=== PATIENT | female | born 1970 | race Caucasian/White ===

== ENCOUNTER 2018-06-19 02:47 | Inpatient (IN) ==
[2018-06-19] MEDS ORDERED: Bisacodyl 10 MG Supp RECTAL PRN (08:05)
[2018-06-19] MEDS ORDERED: Aluminum/Magnesium/Simethacone Susp 30 ML UDC PO PRN ×2 (08:05→12:21)
[2018-06-19] MEDS ORDERED: Senna/Docusate Sodium 8.6/50 MG Tablet PO SCH (09:00)
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
== END 2018-06-19 13:55 | disposition home or self-care (01) ==
LOC: H260 05:00
PROVIDERS: ADMIT Psychiatry & Neurology Psychiatry; ATTEND Psychiatry & Neurology Psychiatry